=== PATIENT | female | born 1995 | race Hispanic/Latino ===

== ENCOUNTER 2018-08-08 17:42 | Emergency (ER) | payer MEDICAID ==
[2018-08-08 19:01] LABS: BASOPHILS % (AUTO) 0.3 % (0.0-5.0); EOSINOPHILS % (AUTO) 0.6 % (0.0-8.0); HEMATOCRIT 38.8 % (36-48); LYMPHOCYTES % (AUTO) 16.2 % (21.0-51.0); MEAN CORPUSCULAR HEMOGLOBIN 27.2 pg (27.0-33.0); MEAN CORPUSCULAR HGB CONC 33.5 g/dL (32.0-36.0); MEAN CORPUSCULAR VOLUME 81.2 fL (80-100); MONOCYTES % (AUTO) 7.5 % (3.0-13.0); NEUTROPHILS % (AUTO) 75.4 % (40.0-77.0); PLATELET COUNT (AUTO) 342 K/uL (130-400); RED BLOOD CELL COUNT(AUTO) 4.78 MIL/uL (4.00-5.50); RED CELL DISTRIBUTION WIDTH 13.1 % (11.0-15.5); WHITE BLOOD COUNT (AUTO) 10.8 K/uL (4.8-10.8)
[2018-08-08] MEDS ORDERED: ONDANSETRON HCL 4 MG/2 ML VIAL ONE (19:06)
[2018-08-08] MEDS ORDERED: SODIUM CHLORIDE 0.9% 1000ML 1,000 ML IV ONE (19:06)
[2018-08-08 19:31] LABS: CREATININE 0.5 mg/dL (0.5-1.5); POTASSIUM 3.1 mmol/L (3.5-5.1)
== END 2018-08-08 19:27 | disposition left against medical advice (07) ==
LOC: EDH 17:42
DX: O21.9 Vomiting of pregnancy, unspecified (principal); Z3A.08 8 weeks gestation of pregnancy
CPT/HCPCS: 36415; 80048; 84702; 85025; 87804 ×2; 99284; J2405; J7030

== ENCOUNTER 2019-01-26 09:02 | Inpatient (IN) | payer MEDICAID | END 2019-01-28 12:45 | disposition home or self-care (01) | LOC: LDH 09:02 → WSH 01-27 19:16 | PROC: 10E0XZZ Delivery of Products of Conception, External Approach (ICD-10-PCS; principal; ~2019-01-26) | DX: O14.04 Mild to moderate pre-eclampsia, complicating childbirth (principal); Z37.0 Single live birth ==

== ENCOUNTER 2024-11-01 08:11 | Emergency (ER) | payer BC, MEDICAID ==
[~2024-11-01] VITALS: Ht 162.6 cm; Wt 90.7 kg
[2024-11-01 08:11] VITALS: BP 113/61; PULSE 73; RESP 20; TEMP 98.8
[~2024-11-01 08:11] MED LIST: ACET-2079 PO; FERR-82 PO
[2024-11-01] MEDS ORDERED: NYST15CR39 TP (08:31)
--- NOTE | 2024-11-01 08:31 | ERN ---
ED Note History of Present Illness Stated Complaint: RIGHT INGUINAL PAIN POSSIBLE ABSCESS Chief Complaint: Groin Pain Time Seen by MD: 08:20 Dictation: A 29-year-old female she comes to the ED. Because she has had some inguinal irritation. Denies any abdominal pain nausea vomiting flank pain falls trips traumas fevers chills Allergies: Coded Allergies: No Allergy Information Available (Verified Allergy, Unknown, 01/26/19) No Known Drug Allergies (Unverified Allergy, Unknown, 02/13/23) Home Meds Reported Medications Acetaminophen with Codeine (Acetaminophen-Cod #3 Tablet) 1 Each Tablet, 1 EACH P O Q6H PRN for PAIN LEVEL 4 TO 6, #15 TAB 07/28/22 Ferrous Sulfate (Iron) 325 Mg Tablet, 325 MG PO AM, TAB 01/27/19 Past Medical History Past Medical History: No Pertinent History Surgical History: None LMP: Oct 11, 2024 : 3 Para: 3 Aborts: 0 Review of System Dictation Constitutional: Negative for fever,chills, and weight loss Eyes: Negative for injury, pain,redness, and discharge ENT: Negative for injury,pain or swelling Cardiovascular: Negative for chest pain, palpitations, and edema Respiratory: Negative for shortness of breath, cough, and wheezing, Abdomen/GI: Negative for abdominal pain, nausea, vomiting, diarrhea, and constipation Back: Negative for injury and pain : Negative for injury, bleeding and discharge MS/Extremity: Negative for injury and deformity Skin: Rash in the inguinal region Neuro: Negative for headache, weakness, numbness, tingling, and seizure Psych: Negative for suicide ideation, homicidal ideation, and hallucinations Initial Vital Sign VS Vital Signs Date Time Temp Pulse Resp B/P (MAP) Pulse Ox O2 Delivery O2 Flow Rate FiO2 11/01/24 08:11 98.8 73 20 113/61 99 Room Air 0 Physical Exam Dictation General: awake, alert, NAD Head/Face: Normocephalic, atraumatic Eyes: PERRL, EOMI, vision at baseline ENT: oral cavity clear, TMs clear, no signs of infection Neck: Trachea midline, supple, no nuchal rigidity Cardiovascular: RRR, normal S1/S2, No MRGs, no JVD Respiratory: CTAB, no respiratory distress, No rales or wheezes Abdomen: Soft, non-tender, non-distended, normal bowel sounds, no guarding or rebound. Skin: Patient has a rash in the inguinal region. [place] no signs of cellulitis MS/Extremity: Pulses equal, no cyanosis, neurovascular intact, FROM Neuro: COAx4, GCS 15, strength 5/5, CN 2-12 intact, normal cerebellar exam, normal gait, Psych: Normal behavior, mood, and affect normal ED Course ED Course Vital Signs Date Time Temp Pulse Resp B/P (MAP) Pulse Ox O2 Delivery O2 Flow Rate FiO2 11/01/24 08:11 98.8 73 20 113/61 99 Room Air 0 Medical Decision Making MDM Told the patient we can treat her for this candidal infection with the nystatin cream. Do not have any signs of secondary cellulitis. UTI pyelo sepsis bacteremia etc. stable for outpatient management she was okay she was in agreement with this DX & DISP Disposition: Discharge Departure Impression: Primary Impression: Migdalia infection Condition: Stable Scripts Nystatin (Nystatin) 100,000 Unit/Gram Cream.gm. 1 APPL TP TID for 5 Days, #15 GM 0 Refills apply to affected area(s) Prov: DANIELA MARTINEZ MD 11/01/24 Referrals: NIYA BLACKMON MD (PCP) DANIELA MARTINEZ MD Nov 01, 2024 08:31
[2024-11-01] MEDS: fluCONazole 100 MG TAB PO ONE (08:45)
== END 2024-11-01 08:57 | disposition home or self-care (01) ==
LOC: EDH 08:11
DX: B37.9 Candidiasis, unspecified (principal)
CPT/HCPCS: 99283

== ENCOUNTER 2024-12-10 13:07 | Emergency (ER) | payer BC ==
[~2024-12-10] VITALS: Ht 162.6 cm; Wt 104.3 kg
[~2024-12-10 13:07] MED LIST changes: +NYST15CR39 TP
--- NOTE | 2024-12-10 14:13 | ERN ---
General Chief Complaint: Muscle Spasm Stated Complaint: UPPER LEFT SIDE PAIN Source: patient History of Present Illness Initial Comments PATIENT IS A 29-YEAR-OLD FEMALE COMING IN TO BE EVALUATED FOR LEFT TRAPEZIUS MUSCLE PAIN. SHE WAS STATES THAT THE PAIN INITIATES IN THE LEFT TRAPEZIUS AND RADIATES DOWN HER BACK AND HEAD. PATIENT IS A STATES THAT HE HAS BEEN ONGOING FOR SEVERAL MONTHS. Allergies: Coded Allergies: No Allergy Information Available (Verified Allergy, Unknown, 01/26/19) No Known Drug Allergies (Unverified Allergy, Unknown, 02/13/23) Home Meds Active Scripts Nystatin (Nystatin) 100,000 Unit/Gram Cream.gm., 1 APPL TP TID for 5 Days, #15 GM 0 Refills apply to affected area(s) Prov:DANIELA MARTINEZ MD 11/01/24 Reported Medications Acetaminophen with Codeine (Acetaminophen-Cod #3 Tablet) 1 Each Tablet, 1 EACH PO Q6H PRN for PAIN LEVEL 4 TO 6, #15 TAB 07/28/22 Ferrous Sulfate (Iron) 325 Mg Tablet, 325 MG PO AM, TAB 01/27/19 Past Medical History Past Medical History: No Pertinent History Past Surgical History: None Female( History) LMP: Nov 14, 2024 : 3 Para: 3 Aborts: 0 ROS Dictation CONSTITUTIONAL: NO CHILLS, NO FEVER, NO WEAKNESS, NO DIAPHORESIS, NO MALAISE. HEAD/FACE: NO SIGNS OF TRAUMA. EENT: NO EYE PAIN, NO BLURRED VISION, NO TEARING, NO DOUBLE VISION, NO EAR PAIN, NO EAR DISCHARGE, NO NOSE PAIN, NO NASAL CONGESTION, NO THROAT PAIN, NO THROAT SWELLING, NO MOUTH PAIN. RESPIRATORY: NO COUGH, NO ORTHOPNEA, NO SOB, NO STRIDOR, NO WHEEZING. CARDIOVASCULAR: NO CHEST PAIN, NO EDEMA, NO PALPITATIONS, NO SYNCOPE. GASTROINTESTINAL/ABDOMINAL: NO ABDOMINAL PAIN, NO CONSTIPATION, NO DIARRHEA, NO NAUSEA, NO VOMITING. GENITOURINARY: NO ABNORMAL DISCHARGE, NO DYSURIA, NO FREQUENT URINATION, NO HEMATURIA. NO COMPLAINTS OF PAIN IN THE GENITALS. MUSCULOSKELETAL: BACK PAIN, NO GOUT, NO JOINT PAIN, NO JOINT SWELLING, MUSCLE PAIN, NO MUSCLE STIFFNESS, NO NECK PAIN. INTEGUMENTARY: NO CHANGE IN COLOR, NO CHANGE IN HAIR/NAILS, NO DRYNESS, NO LESION, NO LUMPS, NO RASH. NEUROLOGICAL/PSYCH: NO ANXIETY, NOT DEPRESSED, NO EMOTIONAL PROBLEM, NO HEADACHE, NO NUMBNESS, NO PRE-EXISTING DEFICIT, NO HISTORY OF SEIZURES, NO TREMORS, NO WEAKNESS. HEMATOLOGIC/LYMPHATIC: NOT ANEMIC, NO HISTORY OF BLOOD CLOTS, NO APPARENT BLEEDING, NO BRUISING, GLANDS NOT SWOLLEN. ALL SYSTEMS NEGATIVE, EXCEPT NOTED. Physical Exam Physical Exam Dictation VITAL SIGNS: REVIEWED. GENERAL APPEARANCE: ALERT, ORIENTED X3, NO ACUTE DISTRESS, OBESE. HEAD AND FACE: NON-TRAUMATIC. EYES: PERRL, PINK CONJUNCTIVAS, EYELID NO TRAUMA, ANTERIOR CHAMBER CLEAR. EARS: PINNAS INTACT AND NO SIGNS OF TRAUMA OR ERYTHEMA. EAR CANALS CLEAR AND NO DISCHARGE. TMS NO ERYTHEMA. NOSE: NO DISCHARGE, NO BLEEDING. OROPHARYNX: MOUTH NORMAL, TEETH NO CARIES, TONGUE PINK. PHARYNX CLEAR, NO ERYTHEMA. TONSILS NO EXUDATES, NO ABSCESSES NOTED. MUCOUS MEMBRANE MOIST. NECK: SUPPLE, NON-TENDER, NO THYROMEGALY, NO MASSES, NO JVD, NO BRUITS. BREAST: DEFERRED. CHEST: NO TENDERNESS, NO CREPITUS, NO PARADOXICAL MOVEMENT, NO RETRACTIONS. LUNGS: CLEAR, WELL-VENTILATED, SYMMETRIC, NO RALES, NO WHEEZING, NO RHONCHI, NO STRIDOR, GOOD BREATH SOUNDS BILATERALLY. HEART: REGULAR RATE, REGULAR RHYTHM, NO MURMUR, NO GALLOPS. VASCULAR: NO PERIPHERAL EDEMA. ABDOMEN: SOFT, POSITIVE BOWEL SOUNDS, NONDISTENDED, NO GUARDING, NONTENDER, NO REBOUND, NO MASSES NO HEPATOMEGALY, NO SPLENOMEGALY, NO [place]'S SIGN, NO HERNIAS. RECTAL: DEFERRED. GENITAL: DEFERRED. NEUROLOGICAL: NORMAL SPEECH, GROSS MOTOR FUNCTION INTACT, GROSS SENSORY FUNCTION INTACT. MUSCULOSKELETAL: NECK NONTENDER, FULL RANGE OF MOTION, INSURANCE AGENCY OWNER, FULL RANGE OF MOTION. EXTREMITIES: NONTENDER, FULL RANGE OF MOTION. SKIN: COLOR PINK, DRY, NO TURGOR, NO RASH, NO LACERATIONS, NO ABRASIONS, NO CONTUSIONS. LYMPHATICS: DEFERRED. Results Laboratory and Microbiology Lab and Micro Result Laboratory Tests Test 12/10/24 15:11 Urine HCG, Qualitative NEGATIVE (NEGATIVE) Labs Reviewed?: Yes MDM PATIENT IS A 29-YEAR-OLD FEMALE COMING IN TO BE EVALUATED FOR LEFT NECK TRAPEZIUS MUSCLE TENDERNESS. PATIENT STATES THAT THE PAIN RADIATES TO THE LOWER BACK REGION. ON PHYSICAL EXAM PAIN IS REPRODUCIBLE IN THE LEFT TRAPEZIUS MUSCLE. I ADVISED PATIENT ANTI-INFLAMMATORIES ANTISPASMODICS TO HELP WITH THE PAIN. ALSO ADVISED HER APPROPRIATE FOLLOW UP WITH PCP IN 1-2 DAYS FOR ONGOING EVALUATION AND MANAGEMENT. PATIENT DID STATE THAT THIS PAIN HAS BEEN PRESENT FOR SEVERAL MONTHS. ED Course Orders Procedure Category Date Status Time ,Urine Test LAB 12/10/24 Complete 13:10 Ketorolac PHA 12/10/24 Complete Tromethamine 30mg/Ml 15:30 Orphenadrine Citrate PHA 12/10/24 Complete (Norflex) 15:30 Current Medications Medications (Trade) Dose Ordered Sig/Lexy Route PRN Reason Start Time Stop Time Status Last Admin Dose Admin Ketorolac Tromethamine (toRADol) 30 mg ONCE ONCE IM 12/10/24 15:30 12/10/24 15:31 DC 12/10/24 15:45 Orphenadrine Citrate (Norflex) 60 mg ONCE ONCE IM 12/10/24 15:30 12/10/24 15:31 DC 12/10/24 15:45 Vital Signs Date Time Temp Pulse Resp B/P (MAP) Pulse Ox O2 Delivery O2 Flow Rate FiO2 12/10/24 15:07 98.1 96 16 136/79 98 Room Air* 0 21 12/10/24 13:45 98.1 96 16 136/79 98 Room Air 0 DX & DISP Disposition: Discharge Departure Impression: Primary Impression: Spasm of left trapezius muscle Condition: Stable Scripts Naproxen (Naproxen) 500 Mg Tablet 1 TAB PO BID for pain for 7 Days, #14 TAB 0 Refills Prov: FARHAN LIMON MD 12/10/24 Methocarbamol (Robaxin) 750 Mg Tab 1 TAB PO BID for 7 Days, #14 TAB 0 Refills Prov: FARHAN LIMON MD 12/10/24 Additional Instructions: FOLLOW-UP WITH PRIMARY CARE PROVIDER IN 1 TO 2 DAYS. TAKE MEDICATIONS DIRECTED HERE IN THE EMERGENCY ROOM. OKAY TO CONTINUE HOME MEDICATIONS UNLESS O THERWISE DISCUSSED DURING YOUR VISIT IN THE EMERGENCY ROOM TODAY. RETURN TO YOUR NEAREST EMERGENCY ROOM IF SYMPTOMS WORSEN OR IF THERE IS NO IMPROVEMENT. CALL 911 IF YOU NEED IMMEDIATE ASSISTANCE. TAKE TYLENOL [id number] NEEDED AND IF NO CONTRAINDICATIONS ARE PRESENT. INCREASE ORAL HYDRATION. A WOUND CULTURE OR URINE CULTURE WAS ORDERED HERE IN THE EMERGENCY ROOM DEPARTMENT PLEASE FOLLOW-UP WITH PRIMARY CARE PROVIDER AND ADVISE THEM TO GET REPEAT PORTS FROM OUR FACILITY. IF YOU HAD ANY KIRK WRAP/SPLINTS THAT WERE APPLIED HERE, PLEASE DO NOT REMOVE THEM UNTIL YOU SEE YOUR PRIMARY CARE OR SPECIALTY. REFERRALS: Referrals: NIYA BLACKMON MD (PCP) Time of Disposition: 15:54 FARHAN LIMON MD Dec 10, 2024 14:13
[2024-12-10 15:07] VITALS: BP 136/79; PULSE 96; RESP 16; TEMP 98; O2SAT 98
[2024-12-10] MEDS: ORPHENADRINE 60MG/2ML IM ONE (15:45)
[2024-12-10] MEDS: ketOROlac 30MG VIAL (30MG/ML) IM ONE (15:45)
[2024-12-10] MEDS ORDERED: NAPR-1194 PO (15:55)
[2024-12-10] MEDS ORDERED: METH-662 PO (15:55)
== END 2024-12-10 16:16 | disposition home or self-care (01) ==
LOC: EDH 13:07
DX: M62.838 Other muscle spasm (principal); Z79.899 Other long term (current) drug therapy
CPT/HCPCS: 99284; 81025; 96372 ×2; J1885; J2360

== ENCOUNTER 2025-05-14 03:24 | Emergency (ER) | payer BC ==
[~2025-05-14] VITALS: Ht 162.6 cm; Wt 108.9 kg
[~2025-05-14 03:24] MED LIST changes: +METH-662 PO; +NAPR-1194 PO; +NYST15CR34 TP; -NYST15CR39 TP
[2025-05-14 03:25] VITALS: TEMP 97.1
[2025-05-14 04:13] VITALS: BP 112/59; PULSE 83; RESP 19; O2SAT 99
--- NOTE | 2025-05-14 04:56 | NUR ---
PATIENT REFUSED TO HAVE BLOOD WORK COMPLETED AT THIS TIME, EDUCATED PATIENT THAT THE IMPORTANCE OF HAVING BLOOD WORK DONE IS TO HELP THE DOCTOR FIND THE CAUSE FOR THE ED VISIT, PATIENT STATED, "I ALREADY HAD BLOOD WORK DONE AT THE [facility], THEY SAID EVERYTHING WAS NORMAL, CAN YOU JUST GET THE RECORDS FROM THEM?" INFORMED PATIENT THAT THOSE RECORDS WILL TAKE APPROX. 24 HOURS TO OBTAIN AND THE TESTS THAT WILL BE DONE HERE WILL TAKE AN HOUR OR SO TO RESULT. PATIENT STATED, "I DON'T WANT THE TESTS, I'LL JUST GO TO MY DOCTOR TOMORROW." QUESTIONED PATIENT WHAT SHE WISHES TO DO, PATIENT VOICED THAT SHE WANTS TO LEAVE AGAINST MEDICAL ADVICE. EDUCATED PATIENT THAT LEAVING AMA HAS RISKS INCLUDING AND TO SEEK MEDICAL ATTENTION IF SYMPTOMS WORSEN. PATIENT VERBALIZED UNDERSTANDING OF RISKS AND AMA FORM SIGNED./JARVIS
== END 2025-05-14 05:13 | disposition left against medical advice (07) ==
LOC: EDH 03:24
DX: R11.0 Nausea (principal); Z53.21 Procedure and treatment not carried out due to patient leaving prior to being seen by health care provider